=== PATIENT | female | born 1950 | race African-American/Black ===

== ENCOUNTER 2019-07-11 05:42 | Observation (INO) | payer MEDICARE, OTHER ==
[~2019-07-11] VITALS: Ht 165.1 cm; Wt 77.6 kg
--- OUTSIDE RECORDS SUMMARY | 2019-07-11 05:46 | XMS REPORT ---
Author Author [facility] [place] Address Unknown Phone Unavailable Care Team Providers Care News Operations Manager Name Role Phone Mandeep VERMA Unavailable Unavailable Problems This patient has no known problems. Allergies, Adverse Reactions, Alerts This patient has no known allergies or adverse reactions. Medications This patient has no known medications. Results Test Description Test Time Test Comments Text Results Atomic Results Result Comments CHEST 2 VIEWS [place] [address] Patient Name: TAMARA LAZAR MR #: [id number] : 1950 Age/Sex: 66/F Req #: [id number] Adm Physician: Ordered by: LISA VERMA MD Report #: [id number] Location: ER Room/Bed: Procedure: [id number] DX/CHEST 2 VIEWS Exam Date: 08/18/17 Exam Time: 611 REPORT STATUS: Signed CHEST 2 VIEWS, Technique: CHEST 2 VIEWS Comparison: None Clinical history: Chest pain DISCUSSION: Heart size is within normal limits. Aorta is mildly tortuous. No abnormality of the lungs or pleural spaces. IMPRESSION: No acute abnormality. Signed by: Dr Delmy Huston MD on 08/18/2017 6:38 AM Dictated By: DELMY HUSTON MD Transcribed By: BENJAMÍN on 08/18/1738 COPY TO: LISA VERMA MD CT BRAIN WO [facility] [address] [address] Patient Name: TAMARA LAZAR MR #: [id number] : 1950 Age/Sex: 66/F Req #: [id number] Adm Physician: Ordered by: LISA VERMA MD Report #: [id number] Location: ER Room/Bed: Procedure: [id number] CT/CT BRAIN WO Exam Date: 08/18/17 Exam Time: 606 REPORT STATUS: Signed EXAMINATION: Head CT HISTORY: Pressure headache dizziness COMPARISON: None. TECHNIQUE: Multidetector axial images were obtained without contrast from the foramen magnum to the vertex . The images were reconstructed using brain and bone algorithms. Thin section brain images were reformatted into coronal and sagittal planes. Intravenous contrast: None. Motion/streaking artifact limits the evaluation of the skull base and posterior cranial fossa. FINDINGS: Parenchyma: 1. Severe confluent supratentorial white matter hypodensities, most likely nonspecific chronic microvascular ischemic changes other considerations would also include sequela from prior treatment (such as chemotherapy or radiation in the appropriate clinical setting),, this likely metabolic disorder, among other causes. 2. No mass or hemorrhage. No CT evidence of acute territorial vascular insult. Extra-axial spaces:No abnormal density. No extra-axial fluid collections Brain volume: Normal for age. Ventricles: No hydrocephalus or displacement. Arteries: No density suggestive of thrombus. Dural sinuses: No abnormal density. Extra-axial spaces: No abnormal density. Foramen magnum: No mass, Chiari malformation, or basilar invagination. Sella: No obvious mass. Paranasal/mastoid sinuses: Imaged portions unremarkable. Skull/Scalp: No lytic or blastic lesions. No fractures. IMPRESSION: 1. No acute intracranial hemorrhage or cortical infarcts. 2. Severe confluent white matter hypodensities, most likely nonspecific chronic microvascular ischemic changes as detail above, comparison to prior studies if available is recommended. Signed by: Dr. Otilia Dela Cruz M.D. on 08/18/2017 6:57 AM Dictated By: OTILIA DELA CRUZ MD 6 Transcribed By: BENJAMÍN on 08/18/17656 COPY TO: LISA VERMA MD
[2019-07-11] MEDS ORDERED: SODIUM CHLORIDE 0.9% 1000ML 1,000 ML IV STA (06:43)
[2019-07-11] MEDS ORDERED: SODIUM CHLORIDE 0.9% 50ML 50 ML ONE (06:53)
[2019-07-11] MEDS ORDERED: IOPAMIDOL 370 MG/ML 200 ML INFUS..BTL INJ ONE (06:54)
[2019-07-11] MEDS ORDERED: SODIUM CHLORIDE 0.9% 1000ML 1,000 ML ONE (07:03)
--- NOTE | 2019-07-11 08:05 | Diagnostic Imaging Report ---
Examination: Single AP view of the chest. COMPARISON: None. INDICATION: Shortness of breath DISCUSSION: Lines/tubes: None. Lungs: The lungs are well inflated and clear. There is no evidence of pneumonia or pulmonary edema. Pleura: There is no pleural effusion or pneumothorax. Heart and mediastinum: The heart and the mediastinum are unremarkable. Bones and soft tissues: No acute bony abnormalities. IMPRESSION: 1. No acute cardiopulmonary abnormalities. Signed by: Dr. Jim Maria M.D. on 07/11/2019 8:02 AM
--- NOTE | 2019-07-11 08:53 | Diagnostic Imaging Report ---
ADDENDUM #1 UPPER ABDOMEN: Limited contrast-enhanced images of the upper abdomen demonstrates no focal abnormality in the partially visualized liver, gallbladder, spleen, pancreas, adrenals, or upper kidneys. Signed by: Montserrat Harp MD on 07/11/2019 9:07 AM ORIGINAL REPORT EXAM: CT Chest WITH contrast- Pulmonary Embolism Protocol INDICATION: Shortness of breath, elevated D dimer COMPARISON: Chest radiograph of 07/11/2019 TECHNIQUE: Chest was scanned utilizing a multidetector helical scanner from the lung apex through the level of the diaphragm after administration of IV contrast. Thin section reconstructions were obtained with special concentration on the pulmonary arteries. Coronal and sagittal reformations were obtained. Pulmonary embolism protocol was performed. IV CONTRAST: 100 cc of Isovue 370 RADIATION DOSE: Total DLP: 540.2 mGy*cm Dose modulation, iterative reconstruction, and/or weight based adjustment of the mA/kV was utilized to reduce the radiation dose to as low as reasonably achievable. COMPLICATIONS: None FINDINGS: LINES/ TUBES: None. PULMONARY ARTERIES: No filling defect is identified within the pulmonary arteries to the segmental level. The subsegmental pulmonary arteries are not well opacified. Main pulmonary artery measures 2.8 cm in diameter. LUNGS AND AIRWAYS: The central airways are patent. No focal consolidation or pulmonary edema. Minimal bibasilar dependent subsegmental atelectasis. 4 mm left lower lobe pulmonary nodule (series 2 image 77). 3 mm left lower lobe pulmonary nodule (series 2 image 59). Left lower lobe calcified granuloma (series 2 image 63). PLEURA: The pleural spaces are clear. HEART AND MEDIASTINUM: Partially visualized thyroid gland appears unremarkable. No lymphadenopathy. The heart is not enlarged. No evidence of right heart strain. No pericardial effusion. UPPER ABDOMEN: Limited contrast-enhanced images of the upper abdomen to menstruate no focal abnormality in the partially visualized liver, gallbladder, spleen, pancreas, adrenals, or upper kidneys. BONES: No acute osseous injury. No suspicious lytic or blastic lesions. SOFT TISSUES: Mild diffuse muscular atrophy. IMPRESSION: No pulmonary embolism. No focal pneumonia or pulmonary edema. Less than 5 mm pulmonary nodules as above. If the patient is low risk, no follow-up is needed. If the patient is high risk, recommend chest CT in 6-12 months. Signed by: Montserrat Harp MD on 07/11/2019 8:49 AM
[2019-07-11] MEDS ORDERED: SODIUM CHLORIDE FLUSH 10 ML SYR INJ PRN (09:15)
--- NOTE | 2019-07-11 09:35 | NUR ---
PT RESTING, VITAL SIGNS STABLE, PT VOICES NO COMPLAINTS AT THIS TIME, PT TO BE ADMITTED AND TRANSFERED TO [facility].
--- NOTE | 2019-07-11 09:46 | NUR ---
[facility] CALLED FOR TRANSFER 45 MINUTE ETA
[2019-07-11 10:40] VITALS: BP 120/68
[2019-07-11] MEDS ORDERED: AMLODIPINE BESY10 MG PO (10:55)
[2019-07-11] MEDS ORDERED: CARBIDOPA-LEVO1 EAC4 PO (10:55)
[2019-07-11 11:02] VITALS: BP 120/68
[2019-07-11 11:21] VITALS: BP 120/68
[2019-07-11] MEDS ORDERED: ONDANSETRON HCL INJ 2MG/ML 2ML 2 MG/ML VIAL IV PRN (13:00)
[2019-07-11] MEDS ORDERED: CARBIDOPA PO SCH (13:00)
[2019-07-11] MEDS ORDERED: ACETAMINOPHEN 325 MG TAB PO PRN (13:00)
[2019-07-11] MEDS ORDERED: LEVODOPA PO SCH (13:00)
[2019-07-11] MEDS ORDERED: ALBUTEROL SULF 0.083% NEB SOLN 3 ML NEB NEB PRN (14:15)
--- NOTE | 2019-07-11 14:55 | NUR ---
Visit made by the Spiritual Care Department Pastoral Visitor, Irish Rasmussen. PV provided pastoral presence, prayer, hospitality, and supportive listening. Pastoral Visitor informed pt/family of the scope of Technical Manager Services and availability. FRANK COONEY Lasting Machine Operator Hand Method Spiritual Care Department O: [phone] Pager: [phone] ([phone] number calling from)
[2019-07-11] MEDS: CARBIDOPA/LEVODOPA 25/100 CR TAB PO SCH ×3 (14:58→20:13)
[2019-07-11 15:32] VITALS: BP 118/68
--- NOTE | 2019-07-11 15:40 | NUR ---
peformed bedside pft with pre and post bronchodialator
--- NOTE | 2019-07-11 19:00 | NUR ---
received report from day nurse. patient is resting comfortably in bed. bed is in lowest position and call benjamin is within reach. will continue to monitor patient.
--- NOTE | 2019-07-11 19:21 | NUR ---
Report given to oncoming nurse of patient's status. Resting in bed. No s/s of acute distress noted. Side rails upx2, call light within reach, bed alarm on.
[2019-07-11 20:00] VITALS: BP 115/66
[2019-07-12] VITALS (8 sets, daily range): BP systolic 103–125; BP diastolic 50–70
--- NOTE | 2019-07-12 04:28 | Consultation ---
DATE OF CONSULTATION: 07/11/2019 Pulmonary Medicine Consult REASON FOR REFERRAL: Dyspnea. HISTORY OF PRESENT ILLNESS: Ms. Tirado is a pleasant 68-year-old female with dyspnea. The patient with no preceding history of asthma. No allergies are cited. There is no chronic bronchitis. The patient has never been on home oxygen. The patient recently with decreasing functionality only minimally. She was diagnosed with Parkinson disease and is on combination of carbidopa and levodopa medication. She uses a cane to walk. She still gets out of the house multiple times a week until the last couple of weeks. In the last couple of weeks, she has been having worsening shortness of breath. The patient with decreased mentation, possibly associated with shortness of breath. The patient gives citation that her Parkinson's is relatively well controlled and she does not usually have a lot of tremors. I am consulted as she is quite short of breath upon hospitalization. Chest x-ray was mostly unremarkable except for 3 mm and 4 mm lung nodules and main PA artery trunk of 28 mm in diameter. MEDICATIONS: Medication list reviewed per the chart record. ALLERGIES: PENICILLIN AND SULFA. PAST MEDICAL HISTORY: Parkinson disease, hypertension, and GERD. FAMILY HISTORY: Noncontributory. SOCIAL HISTORY: No smoking, no alcohol in excess, no drugs ever. The patient works as a chemical tester. She was born in [place], [place] and lived in [place] for almost the entirety of her life. REVIEW OF SYSTEMS: GENERAL: There are no weight changes. OPHTHALMOLOGIC: No double vision. ENT: No mouth ulcers. ENDOCRINE: No known thyroid disease. PULMONARY: No hemoptysis. CARDIAC: No heart attack. GI: No recent constipation. : No blood in the urine. DERMATOLOGIC: No rash. NEUROLOGIC: No seizures. MUSCULOSKELETAL: Only very minimal arthritis. OBJECTIVE: VITAL SIGNS: Afebrile, vital signs stable and reviewed per the chart record. GENERAL: In no acute distress, alert and calm. HEENT: Normocephalic and atraumatic. NECK: Supple. Throat midline. LUNGS: Bilateral air entry, there is relatively good air entry. There is no stridor and no discrete upper airways resistance. CARDIOVASCULAR: S1, S2. No murmurs, rubs, or gallops. ABDOMEN: Soft and nontender. EXTREMITIES: No clubbing, no cyanosis, there is no edema. INTEGUMENT: No rash. No purpura. NEUROLOGIC: There is only minimal tremor on rest, usually it is not able to be visualized. The patient moves all four extremities. LABORATORY DATA: Labs were reviewed per the chart record. BNP was 15. was 1600. Albumin 3.4. 7 white count, 39 hematocrit, 134 platelets. 3.8 potassium, 20 BUN, 0.9 creatinine. 29 bicarbonate. IMPRESSION AND PLAN: 1. Shortness of breath, under evaluation. 2. Known Parkinson disease, apparently well controlled based on my initial evaluation. 3. Mild hypoalbuminemia. 4. Lung nodules 3 mm and 4 mm. 5. History of significant gastroesophageal reflux disease. 6. Hypertension. Echocardiogram is pending. We will do lower extremity ultrasounds. Consideration on further pulmonary diagnostics for thromboembolic disease only based on this. Currently, saturations 99% on room air. The patient with well-controlled Parkinson disease and it is not clear that she has any upper airways dystonia at the larynx. However, we will get spirometry and flow volume loops to assess this. The patient likely deconditioned and needs aggressive physical therapy and this was definitely recommended. We will follow along closely. While monitoring the patient here, we will also see if we have to perform any other interventions. We will follow the patient clinically, ensure there is no significant dysphagia and the patient states that she already had evaluation not too long ago. Thank you very much, Dr. Ordonez for allowing me a chance to participate in the care of Ms. Tirado. Please call for questions. MD STEFFI Badillo/HAJA /[id number]
[2019-07-12 05:23] LABS: BASOPHILS % 0.5 % (0.0-1.0); EOSINOPHILS % 0.7 % (0.0-6.0); HEMATOCRIT 32.2 % (34.2-44.1); LYMPHOCYTES # (AUTO) 1.8 (1.0-3.2); LYMPHOCYTES % 30.7 % (18.0-39.1); MEAN CORPUSCULAR HEMOGLOBIN 25.5 pg (28-32); MEAN CORPUSCULAR HGB CONC 34.2 g/dL (31-35); MEAN CORPUSCULAR VOLUME 74.5 fL (81-99); MONOCYTES # (AUTO) 0.6 (0.2-0.8); MONOCYTES % 9.8 % (4.4-11.3); NEUTROPHILS # (AUTO) 3.5 (2.1-6.9); NEUTROPHILS % 57.8 % (38.7-80.0); PLATELET COUNT 126 x10e3/uL (140-360); RED BLOOD COUNT 4.32 x10e6/uL (3.6-5.1); RED CELL DISTRIBUTION WIDTH 14.8 % (11.7-14.4)
[2019-07-12 05:37] LABS: ANION GAP 12.2 mmol/L (8-16); BLOOD UREA NITROGEN 20 mg/dL (7-26); BUN/CREATININE RATIO 24 (6-25); CARBON DIOXIDE 27 mmol/L (22-29); CHLORIDE 105 mmol/L (98-107); CREATININE, SERUM 0.84 mg/dL (0.57-1.11); EST GLOMERULAR FILTRATION RATE > 60 ML/MIN (60-); GLUCOSE 121 mg/dL (74-118); POTASSIUM 3.2 mmol/L (3.5-5.1); SODIUM 141 mmol/L (136-145)
[2019-07-12 05:56] LABS: THYROID STIMULATING HORMONE 0.546 uIU/mL (0.350-4.940)
--- NOTE | 2019-07-12 07:10 | NUR ---
RCD PT AT BED PT IS ALERT AND ORIENTED PT RESTING ON BED NO SIGNS OF ANY DISTRESS NOTED IV PATENT BED LOW AND LOCKED CALL LIGHT IN REACH
[2019-07-12 07:12] LABS: MICROCYTOSIS SLIGHT; PLATELET ESTIMATE SLIGHTLY DECREASED; PLATELET MORPHOLOGY COMMENT NORMAL; RBC MORPHOLOGY COMMENT NORMAL
[2019-07-12] MEDS: AMLODIPINE BESYLATE 10 MG TAB PO SCH (09:00)
[2019-07-12] MEDS: CARBIDOPA/LEVODOPA 25/100 CR TAB PO SCH ×4 (09:00→21:06)
[2019-07-12] MEDS ORDERED: ALBUTEROL SULF 0.083% NEB SOLN 3 ML NEB NEB PRN (11:30)
[2019-07-12] MEDS ORDERED: POTASSIUM CHLORIDE 20 MEQ TAB CR PO ONE (12:15)
[2019-07-12] MEDS ORDERED: SYMBICORT 80-10.2 GM INH (13:16)
[2019-07-12] MEDS ORDERED: PROAIR HFA INH8.5 GM INH (13:16)
[2019-07-12] MEDS ORDERED: ONDANSETRON HCL 4 MG ORAL DISINTEGRATING TAB PO PRN (17:30)
--- NOTE | 2019-07-12 19:08 | NUR ---
PT RESTING ON BED BED SIDE REPORT GIVEN TO ONCOMING NURSE
--- NOTE | 2019-07-12 19:55 | NUR ---
Pulmonary Medicine DATE OF Encounter: 07/12/2019 SUBJECTIVE: Breathing is slightly better. PFTs reviewed. She is eating without choking. she walked today REVIEW OF SYSTEMS: no headaches, no rash OBJECTIVE: VITAL SIGNS: vital signs stable, reviewed per the chart GENERAL: No acute distress, alert and calm. HEENT: Normocephalic and atraumatic. NECK: Supple. Throat midline. LUNGS: Bilateral air entry, there is relatively good air entry. no stridor CARDIOVASCULAR: S1, S2. No murmurs, rubs, or gallops. ABDOMEN: Soft and nontender. EXTREMITIES: No clubbing, no cyanosis, there is no edema. INTEGUMENT: No rash. No purpura. NEUROLOGIC: no outwards tremor on usual activity LABORATORY DATA: wbc 6.0, hct 32, plt 126 k 3.2 IMPRESSION AND PLAN: 1. Shortness of breath, under evaluation. 2. Known Parkinson disease, apparently well controlled 3. Mild hypoalbuminemia. 4. Lung nodules 3 mm and 4 mm. 5. History of significant gastroesophageal reflux disease. 6. Hypertension. 7. chronic allergies 8. possible asthma PFTs done with very mild restriction, FVC 79%. Flow volume loops without evidence of laryngeal dystonia. While i do not know what the patients normal PFT numbers should be, this spirometry suggests that it is unlikely that there is pulmonary limitation on the patients functionality. Recommend aggressive PT/OT The patient has chronic allergies and a 9% albuterol response on spirometry-- it is reasonable for a trial of inhalers for possible asthma Continue parkinsons treatment fix k Thank you very much, Dr. Ordonez for allowing me a chance to participate in the care of Ms. Tirado. Please call for questions.
[2019-07-13] VITALS: BP 112/58
--- NOTE | 2019-07-13 02:18 | Pulmonary Function Test ---
DATE OF STUDY: 07/11/2019 REFERRING PHYSICIAN: Mesfin Ordonez MD SPIROMETRY: Spirometry demonstrates evidence of very mild restriction. FEV1 was 1.74 L or 89% predicted and FVC was 1.98 L or 79% predicted in the setting of normal FEV1/FVC ratio. After bronchodilator administration, there was no statistically significant change, but there was a mild 9% FEV1 change in response to albuterol. Flow volume loop demonstrates normal findings with no evidence of any fixed obstructions. SUMMARY: Very mild restriction based on spirometry. Clinical correlation is recommended, which may include repeat pulmonary function testing to include lung volumes if indicated. MD STEFFI Badillo/MODL /[id number]
[2019-07-13 04:00] VITALS: BP 116/61
--- NOTE | 2019-07-13 07:00 | NUR ---
RCD PT AT BED PT IS ALERT AND CONFUSED PT RESTING ON BED NO SIGNS OF ANY DISTRESS NOTED IV PATENT FAMILY AT BED SIDE BED LOW AND LOCKED CALL LIGHT IN REACH
[2019-07-13 08:30] VITALS: BP 124/69
[2019-07-13 08:55] VITALS: BP 124/69
[2019-07-13] MEDS: CARBIDOPA/LEVODOPA 25/100 CR TAB PO SCH ×2 (09:00→13:00)
[2019-07-13] MEDS: AMLODIPINE BESYLATE 10 MG TAB PO SCH (09:00)
[2019-07-13 12:01] VITALS: BP 115/72
--- NOTE | 2019-07-13 12:40 | NUR ---
GAVE WALKER TO PT AND COUSIN, GOT GREEN SHEET SIGNED AND COMPLETED TO RETURN TO PACU, ALSO HAD COUSIN SIGN CHOICE FOR [facility] OP THERAPY FOR CHOICE.
--- NOTE | 2019-07-13 13:05 | NUR ---
Pulmonary Medicine DATE OF Encounter: 07/13/2019 SUBJECTIVE: patient walked down the carnes twice less dyspnea REVIEW OF SYSTEMS: no headaches, no rash OBJECTIVE: VITAL SIGNS: vital signs stable, reviewed per the chart GENERAL: No acute distress, alert and calm. HEENT: Normocephalic and atraumatic. NECK: Supple. Throat midline. LUNGS: Bilateral air entry, there is relatively good air entry. no stridor CARDIOVASCULAR: S1, S2. No murmurs, rubs, or gallops. ABDOMEN: Soft and nontender. EXTREMITIES: No clubbing, no cyanosis, there is no edema. INTEGUMENT: No rash. No purpura. NEUROLOGIC: no outwards tremor on usual activity LABORATORY DATA: no new updates IMPRESSION AND PLAN: 1. Shortness of breath, probably multifactorial but with deconditioning as primary factor 2. Known Parkinson disease, apparently well controlled 3. Mild hypoalbuminemia. 4. Lung nodules 3 mm and 4 mm. 5. History of significant gastroesophageal reflux disease. 6. Hypertension. 7. chronic allergies 8. possible asthma PFTs done with very mild restriction, FVC 79%. Flow volume loops without evidence of laryngeal dystonia. While i do not know what the patients normal PFT numbers should be, this spirometry suggests that it is unlikely that there is pulmonary limitation on the patients functionality. Recommend aggressive PT/OT The patient has chronic allergies and a 9% albuterol response on spirometry-- it is reasonable for a trial of inhalers for possible asthma Continue parkinsons treatment possible discharge today Thank you very much, Dr. Ordonez for allowing me a chance to participate in the care of Ms. Tirado. Please call for questions.
--- NOTE | 2019-07-13 13:22 | NUR ---
PT WENT HOME IN SAFE CONDITION WITH HER NEPHEW
--- NOTE | 2019-07-13 14:09 | NUR ---
SW MET W THE PT AT THE BEDSIDE. PT WAS PROVIDED A WALKER AND DEMOGRAPHICS VERIFIED FOR OUTPT PT. PT SIGNED CHOICE FOR [facility] OUTPT PT. STATES SHE HAD PT AT THE [facility] IN THE PAST. ORDER RECEIVED FOR OUTPATIENT PHYSICAL THERAPY. CALLED [id number]; OP PT. SPOKE Karla FORBES. ORDER AND FACE SHEET FAXED TO [phone].
--- NOTE | 2019-07-13 18:38 | Discharge Summary ---
PRIMARY CARE DOCTOR: Dr. Lisbeth Gomez. FINAL DIAGNOSIS: Debility. SECONDARY DIAGNOSES: 1. Respiratory distress possibly due to allergic component. 2. Parkinson disease. 3. Hypertension. 4. Mild chronic thrombocytopenia, asymptomatic. ENTRY LEVEL MARKETING ASSISTANT: Dr. Duron, Pulmonology. PROCEDURE/STUDIES PERFORMED: 1. CTA of the chest, which did not show any PE. 2. Echocardiogram was fairly benign. HISTORY: Per [facility] and P. HOSPITAL COURSE: The patient was admitted. Initially, the patient was very dyspneic with minimal exertion despite the fact that objectively, we could not really find any etiology. Initially, we were entertaining neuromuscular process. The patient does have Parkinson disease, however, surprisingly with incentive spirometry and nebulizer treatment, the patient improved significantly. Her physical debility improved as well to the point that now she just needs outpatient physical therapy. We are arranging a rolling walker for her. PFTs were done, it was decent. There was some response with albuterol, which suggests an allergic component to it. Symbicort and ProAir were prescribed by the art therapy certified supervisor. The patient does have on and off confusion. She lives with her son, however, her son works. The cousin, who is very involved, we spoke about the situation. At this time, the patient will go to [facility] during daytime along with outpatient physical therapy and at that time, the patient may stay with a cousin. We are trying to minimize the time that she spent alone at home. I have also relayed this message to the primary care doctor as well. The patient will follow up with her in one week. The patient was seen and examined today. CONDITION ON DISCHARGE: Improved. DISCHARGE MEDICATIONS: Please see medication reconciliation form. Eneching MD NENITA Nation/HAJA /[id number] cc: Dr. Lisbeth Gomez [facility]
== END 2019-07-13 13:22 | disposition home or self-care (01) ==
LOC: FSED 05:42 → ERHOLD 09:22 → MED/SURG2 10:37
PROVIDERS: ADMIT Internal Medicine; ATTEND Internal Medicine
DX: R06.03 Acute respiratory distress (principal); I10 Essential (primary) hypertension; G20 Parkinson's disease; Z88.0 Allergy status to penicillin; Z88.2 Allergy status to sulfonamides; K21.9 Gastro-esophageal reflux disease without esophagitis; E88.09 Other disorders of plasma-protein metabolism, not elsewhere classified; R91.8 Other nonspecific abnormal finding of lung field; D69.6 Thrombocytopenia, unspecified; R53.81 Other malaise
CPT/HCPCS: 36415; 71045; 71260; 80048; 80053; 81003; 82553; 82607; 83880; 84443; 84484; 85025 ×2; 85379; 85651; 86140; 93005; 93306; 94060; 94640; 97110; 97116; 97139; 97161; 99284; G0378 ×3; J7030; Q9967

== ENCOUNTER 2019-07-26 16:10 | Outpatient (RCR) | payer MEDICARE ==
[~2019-07-26 16:10] MED LIST: AMLODIPINE BESY10 MG PO; CARBIDOPA-LEVO1 EAC4 PO; PROAIR HFA INH8.5 GM INH; SYMBICORT 80-10.2 GM INH
== END 2019-07-29 ==
LOC: PT 16:10
PROVIDERS: ATTEND Internal Medicine
DX: R06.00 Dyspnea, unspecified (principal); R53.1 Weakness

== ENCOUNTER 2019-08-22 16:48 | Outpatient (RCR) | payer MEDICARE | END 2019-08-28 | LOC: PT 16:48 | PROVIDERS: ATTEND Internal Medicine | DX: R06.00 Dyspnea, unspecified (principal); R53.1 Weakness ==

== ENCOUNTER 2019-09-19 17:00 | Outpatient (RCR) | payer MEDICARE | END 2019-09-28 | LOC: PT 17:00 | PROVIDERS: ATTEND Internal Medicine | DX: R06.00 Dyspnea, unspecified (principal); R53.1 Weakness ==

== ENCOUNTER 2020-02-08 19:08 | Emergency (ER) | payer MEDICARE ==
[~2020-02-08] VITALS: Ht 317.5 cm; Wt 77.6 kg
[~2020-02-08 19:08] MED LIST changes: +HYDROCHLOROTHIA25 MG PO
[2020-02-08 21:12] VITALS: BP 127/83
== END 2020-02-08 20:20 | disposition home or self-care (01) ==
LOC: ER 19:08
DX: R06.02 Shortness of breath (principal); I10 Essential (primary) hypertension; G20 Parkinson's disease
CPT/HCPCS: 99284

== ENCOUNTER 2025-01-01 08:53 | Inpatient (IN) | payer MEDICARE ==
[~2025-01-01] VITALS: Ht 165.1 cm; Wt 76.2 kg
[2025-01-01] VITALS (8 sets, daily range): BP systolic 139–157; BP diastolic 92–96; PULSE 63–89; RESP 17–18; TEMP 97.6–98.4; O2SAT 93–98
[2025-01-01] MEDS ORDERED: FEROSUL325 MG PO (09:13)
[2025-01-01] MEDS ORDERED: VITAMIN D32400 UNIT/ (09:13)
[2025-01-01] MEDS ORDERED: ALENDRONATE SOD70 MG PO (09:13)
[2025-01-01] MEDS ORDERED: DORZOLAMIDE HCL10 ML OP (09:13)
[2025-01-01] MEDS ORDERED: ATORVASTATIN CA20 MG PO (09:13)
[2025-01-01] MEDS ORDERED: LATANOPROST2.5 ML OP (09:13)
[2025-01-01 10:14] LABS: BASOPHILS % 0.3 % (0.0-1.0); EOSINOPHILS % 0.3 % (0.0-6.0); HEMATOCRIT 33.4 % (34.2-44.1); HEMOGLOBIN 11.8 g/dL (12.0-16.0); LYMPHOCYTES # (AUTO) 1.2 (1.0-3.2); LYMPHOCYTES % 39.1 % (18.0-39.1); MEAN CORPUSCULAR HEMOGLOBIN 24.7 pg (28-32); MEAN CORPUSCULAR HGB CONC 35.3 g/dL (31-35); MEAN CORPUSCULAR VOLUME 69.9 fL (81-99); MONOCYTES # (AUTO) 0.4 (0.2-0.8); MONOCYTES % 12.9 % (4.4-11.3); NEUTROPHILS # (AUTO) 1.5 (2.1-6.9); NEUTROPHILS % 47.1 % (38.7-80.0); PLATELET COUNT 110 x10e3/uL (140-360); RED BLOOD COUNT 4.78 x10e6/uL (3.6-5.1); RED CELL DISTRIBUTION WIDTH 14.7 % (11.7-14.4); WHITE BLOOD COUNT 3.17 x10e3/uL (4.8-10.8)
[2025-01-01 10:28] LABS: INFLUENZA A AG NEGATIVE (NEGATIVE)
[2025-01-01 10:29] LABS: CORONAVIRUS COVID-19 AG NEGATIVE (NEGATIVE); INFLUENZA B AG NEGATIVE (NEGATIVE)
[2025-01-01 10:44] LABS: ALBUMIN/GLOBULIN RATIO 0.6 (0.8-2.0); ALKALINE PHOSPHATASE 74 IU/L (40-150); ANION GAP 15.7 mmol/L (8-16); BILIRUBIN,TOTAL 0.7 mg/dL (0.2-1.2); BLOOD UREA NITROGEN 17 mg/dL (7-26); BUN/CREATININE RATIO 19 (6-25); CALCIUM 8.8 mg/dL (8.4-10.2); CARBON DIOXIDE 23 mmol/L (22-29); CHLORIDE 101 mmol/L (98-107); CREATININE, SERUM 0.88 mg/dL (0.57-1.11); EST GLOMERULAR FILTRATION RATE 68 ML/MIN (>=60); GLUCOSE 85 mg/dL (74-118); LIPASE 54 U/L (8-78); POTASSIUM 3.7 mmol/L (3.5-5.1); SODIUM 136 mmol/L (136-145); TOTAL PROTEIN 8.2 g/dL (6.5-8.1)
[2025-01-01 10:45] LABS: ALANINE AMINOTRANSFERASE < 6 IU/L (0-55)
[2025-01-01 10:49] LABS: COLOR,URINE YELLOW (YELLOW)
[2025-01-01 10:50] LABS: BILIRUBIN,URINE NEGATIVE (NEGATIVE); CLARITY,URINE CLEAR (CLEAR); GLUCOSE, URINE NEGATIVE (NEGATIVE); KETONES,URINE NEGATIVE (NEGATIVE); LEUKOCYTE ESTERASE ,URINE NEGATIVE (NEGATIVE); NITRITE,URINE NEGATIVE (NEGATIVE); PH,URINE 7 (5 - 7); PROTEIN,URINE DIPSTICK NEGATIVE (NEGATIVE); URINE UROBILINOGEN 1 mg/dL (0.2 - 1)
[2025-01-01 11:13] LABS: EPITHELIAL CELLS,URINE FEW /LPF
[2025-01-01 11:18] LABS: BACTERIA,URINE RARE /HPF
[2025-01-01] MEDS ORDERED: CIPROFLOXACIN 400 MG/D5W 200ML 200 ML IV SCH (13:00)
[2025-01-01] MEDS: METRONIDAZOLE 500MG/NS 100ML 100 ML IV SCH (13:01)
[2025-01-01] MEDS ORDERED: IOPAMIDOL 370 MG/ML 100 ML INFUS..BTL INJ ONE (13:15)
[2025-01-01] MEDS ORDERED: ONDANSETRON HCL INJ 2MG/ML 2ML 2 MG/ML VIAL IV PRN (13:30)
[2025-01-01] MEDS ORDERED: SODIUM CHLORIDE FLUSH 10 ML SYR INJ PRN (13:30)
[2025-01-01] MEDS ORDERED: CARBIDOPA/LEVODOPA 25/100 TAB PO ONE (16:30)
[2025-01-01] MEDS: CARBIDOPA/LEVODOPA 25/100 TAB PO ONE (17:23)
[2025-01-01] MEDS: MAGNESIUM HYDROXIDE 30 ML UDC PO ONE (19:26)
[2025-01-01] MEDS ORDERED: ACETAMINOPHEN 325 MG TAB PO PRN (19:30)
[2025-01-01] MEDS: MINERAL OIL 132 ML BTL PR ONE (21:07)
[2025-01-01] MEDS: SODIUM CHLORIDE 0.9% 1000ML 1,000 ML IV SCH (21:08)
[2025-01-01] MEDS: CARBIDOPA/LEVODOPA 25/100 CR TAB PO SCH (21:08)
[2025-01-01] MEDS: LATANOPROST(OPTH) 2.5 ML BTL OP SCH (21:08)
[2025-01-02] VITALS (8 sets, daily range): BP systolic 105–186; BP diastolic 59–95; PULSE 61–84; RESP 16–20; TEMP 97.4–98.9; O2SAT 94–98
[2025-01-02 07:12] LABS: BASOPHILS % 0.3 % (0.0-1.0); EOSINOPHILS % 0.3 % (0.0-6.0); HEMATOCRIT 33.4 % (34.2-44.1); HEMOGLOBIN 11.8 g/dL (12.0-16.0); LYMPHOCYTES # (AUTO) 1.2 (1.0-3.2); LYMPHOCYTES % 37.8 % (18.0-39.1); MEAN CORPUSCULAR HEMOGLOBIN 24.8 pg (28-32); MEAN CORPUSCULAR HGB CONC 35.3 g/dL (31-35); MEAN CORPUSCULAR VOLUME 70.3 fL (81-99); MONOCYTES # (AUTO) 0.4 (0.2-0.8); NEUTROPHILS # (AUTO) 1.7 (2.1-6.9); NEUTROPHILS % 50.3 % (38.7-80.0); PLATELET COUNT 114 x10e3/uL (140-360); RED BLOOD COUNT 4.75 x10e6/uL (3.6-5.1); RED CELL DISTRIBUTION WIDTH 14.5 % (11.7-14.4); WHITE BLOOD COUNT 3.28 x10e3/uL (4.8-10.8)
[2025-01-02 07:48] LABS: ALBUMIN 2.9 g/dL (3.5-5.0); ALBUMIN/GLOBULIN RATIO 0.5 (0.8-2.0); ANION GAP 14.4 mmol/L (8-16); BILIRUBIN,TOTAL 0.9 mg/dL (0.2-1.2); CALCIUM 8.4 mg/dL (8.4-10.2); CREATININE, SERUM 0.78 mg/dL (0.57-1.11); TOTAL PROTEIN 8.2 g/dL (6.5-8.1)
[2025-01-02 07:53] LABS: POTASSIUM 3.4 mmol/L (3.5-5.1)
[2025-01-02 08:00] LABS: % IRON SATURATION 17 % (15-50); IRON 39 ug/dL (50-170); TOTAL IRON BINDING CAPACITY 228 ug/dL (261-478); TRANSFERRIN 163 mg/dL (180-382)
[2025-01-02 08:54] LABS: FOLATE 5.8 ng/mL (7.0-15.4)
[2025-01-02] MEDS: DORZOLAMIDE HCL (OPTH) 10 ML BOTTLE OP SCH (09:00)
[2025-01-02] MEDS: CITRATE OF MAGNESIA 300ML BOTTLE PO ONE ×2 (09:05→10:47)
[2025-01-02] MEDS: HYDRALAZINE HCL 20 MG/ML VIAL IV PRN (09:06)
[2025-01-02 09:07] LABS: RETICULOCYTE % 0.6 % (0.6-2.1)
[2025-01-02] MEDS ORDERED: BENZONATATE 100 MG CAP PO PRN (09:30)
[2025-01-02] MEDS: GUAIFENESIN 600 MG TAB PO SCH (10:47)
[2025-01-02] MEDS ORDERED: ALBUTEROL/IPRATROPIUM 3 ML NEB NEB PRN (17:00)
[2025-01-02] MEDS: BENZONATATE 100 MG CAP PO SCH (17:23)
[2025-01-02] MEDS: FUROSEMIDE INJ 10 MG/ML 4 ML VIAL IV ONE (17:26)
[2025-01-02] MEDS: FOLIC ACID 1 MG TAB PO ONE (22:42)
[2025-01-03] VITALS (13 sets, daily range): BP systolic 105–159; BP diastolic 63–91; PULSE 51–87; RESP 17–20; TEMP 97.6–98.8; O2SAT 94–100
[2025-01-03 06:41] LABS: BASOPHILS % 0.2 % (0.0-1.0); EOSINOPHILS % 0.2 % (0.0-6.0); HEMATOCRIT 32.5 % (34.2-44.1); HEMOGLOBIN 11.4 g/dL (12.0-16.0); LYMPHOCYTES # (AUTO) 1.1 (1.0-3.2); MEAN CORPUSCULAR HEMOGLOBIN 24.6 pg (28-32); MEAN CORPUSCULAR HGB CONC 35.1 g/dL (31-35); MEAN CORPUSCULAR VOLUME 70.2 fL (81-99); MONOCYTES # (AUTO) 0.4 (0.2-0.8); MONOCYTES % 9.5 % (4.4-11.3); NEUTROPHILS # (AUTO) 2.7 (2.1-6.9); NEUTROPHILS % 63.4 % (38.7-80.0); PLATELET COUNT 115 x10e3/uL (140-360); RED BLOOD COUNT 4.63 x10e6/uL (3.6-5.1); RED CELL DISTRIBUTION WIDTH 14.4 % (11.7-14.4); WHITE BLOOD COUNT 4.23 x10e3/uL (4.8-10.8)
[2025-01-03 07:18] LABS: ANION GAP 12.7 mmol/L (8-16); CALCIUM 8.2 mg/dL (8.4-10.2); CREATININE, SERUM 0.92 mg/dL (0.57-1.11)
[2025-01-03 07:22] LABS: POTASSIUM 2.7 mmol/L (3.5-5.1)
[2025-01-03] MEDS: POTASSIUM CHLORIDE 20 MEQ TAB CR PO ONE (08:47)
[2025-01-03] MEDS: FOLIC ACID 1 MG TAB PO SCH (08:48)
[2025-01-03] MEDS: POTASSIUM CHLORIDE 20MEQ/100ML 100 ML IV ONE (08:51)
[2025-01-03] MEDS: IRON SUCROSE 100 MG in SODIUM CHLORIDE 0.9% 100 ML IV SCH (13:26)
[2025-01-03] MEDS: ALBUTEROL/IPRATROPIUM 3 ML NEB NEB PRN (15:54)
[2025-01-04] VITALS: BP 135/71; PULSE 94; RESP 24; TEMP 96.1; O2SAT 96
[2025-01-04] MEDS: CITRATE OF MAGNESIA 300ML BOTTLE PO ONE (05:46)
[2025-01-04 06:45] LABS: BASOPHILS % 0.4 % (0.0-1.0); EOSINOPHILS % 0.4 % (0.0-6.0); HEMATOCRIT 32.9 % (34.2-44.1); HEMOGLOBIN 11.8 g/dL (12.0-16.0); LYMPHOCYTES # (AUTO) 0.8 (1.0-3.2); LYMPHOCYTES % 29.7 % (18.0-39.1); MEAN CORPUSCULAR HEMOGLOBIN 25.1 pg (28-32); MEAN CORPUSCULAR HGB CONC 35.9 g/dL (31-35); MEAN CORPUSCULAR VOLUME 69.9 fL (81-99); MONOCYTES # (AUTO) 0.4 (0.2-0.8); MONOCYTES % 14.1 % (4.4-11.3); NEUTROPHILS # (AUTO) 1.5 (2.1-6.9); PLATELET COUNT 118 x10e3/uL (140-360); RED BLOOD COUNT 4.71 x10e6/uL (3.6-5.1); RED CELL DISTRIBUTION WIDTH 14.4 % (11.7-14.4); WHITE BLOOD COUNT 2.76 x10e3/uL (4.8-10.8)
[2025-01-04 07:00] LABS: ANION GAP 11.2 mmol/L (8-16); CALCIUM 8.5 mg/dL (8.4-10.2); CREATININE, SERUM 0.78 mg/dL (0.57-1.11)
[2025-01-04 07:01] LABS: POTASSIUM 3.2 mmol/L (3.5-5.1)
[2025-01-04 07:02] LABS: MAGNESIUM 2.1 MG/DL (1.3-2.1); PHOSPHORUS 2.2 MG/DL (2.3-4.7)
[2025-01-04 07:48] VITALS: PULSE 72; RESP 17; O2SAT 99
[2025-01-04 08:00] VITALS: BP 133/91; PULSE 94; RESP 17; TEMP 98.4; O2SAT 100
[2025-01-04 08:47] VITALS: PULSE 72; RESP 17; O2SAT 100
[2025-01-04] MEDS: POTASSIUM CHLORIDE 10MEQ EA PO ONE (10:05)
== END 2025-01-04 11:00 | disposition home or self-care (01) | DRG 388 ==
LOC: ER 09:06 → ERHOLD 13:32 → MED/SURG3 15:40
PROVIDERS: ADMIT Internal Medicine; ATTEND Internal Medicine
DX: K56.41 Fecal impaction (principal); J18.9 Pneumonia, unspecified organism; J69.0 Pneumonitis due to inhalation of food and vomit; K63.1 Perforation of intestine (nontraumatic); D61.818 Other pancytopenia; G20.A1 Parkinson's disease without dyskinesia, without mention of fluctuations; E87.6 Hypokalemia; J06.9 Acute upper respiratory infection, unspecified; J45.909 Unspecified asthma, uncomplicated; E78.5 Hyperlipidemia, unspecified; R53.81 Other malaise; M81.0 Age-related osteoporosis without current pathological fracture; Z11.52 Encounter for screening for COVID-19; Z88.0 Allergy status to penicillin; Z88.2 Allergy status to sulfonamides
CPT/HCPCS: 36415; 71045; 74018; 74177; 80048; 80053; 81001; 82607; 82746; 83540; 83690; 83735; 83880; 84100; 84466; 84484; 85025; 85045; 93005; 94640; 94799; 99284; J0360; J0696; J1756; J1940; J2470; J3480; J7030; J7050; Q9967